=== PATIENT | male | born 1980 | race Caucasian/White ===

== ENCOUNTER 2017-01-24 19:58 | Inpatient (IN) | payer SELFPAY ==
[~2017-01-24] VITALS: Ht 177.8 cm; Wt 77.1 kg
--- NOTE | 2017-01-24 20:20 | NUR ---
to bed 2 ambulatory c/o possible allergic reaction after eating a snicker bar. pt aaox4 no acute distress noted, resp even and unlabored. no hives noted. pt also report of n/v. pending er md babb.
[2017-01-24] MEDS ORDERED: IV NS 0.9% 500 ML BAG IV ONE (20:30)
[2017-01-24] MEDS ORDERED: diphenhydrAMINE HCL 50 MG/ML VIAL IV ONE (20:30)
[2017-01-24] MEDS ORDERED: KETOROLAC TROMETHAMINE INJ 30 MG/ML VIAL IV ONE (20:30)
[2017-01-24] MEDS ORDERED: IV NS 0.9% 1,000 ML BAG IV ONE (20:30)
[2017-01-24] MEDS ORDERED: METOCLOPRAMIDE HCL 10 MG/2 ML VIAL IV ONE (20:30)
[2017-01-24] MEDS ORDERED: diphenhydrAMINE HCL 50 MG/ML VIAL ONE (20:41)
[2017-01-24] MEDS ORDERED: METOCLOPRAMIDE HCL 10 MG/2 ML VIAL ONE (20:41)
[2017-01-24] MEDS ORDERED: KETOROLAC TROMETHAMINE INJ 30 MG/ML VIAL ONE (20:41)
[2017-01-24 20:43] LABS: BASOPHILS % (AUTO) 0.1 % (0.0-2.0); EOSINOPHILS % (AUTO) 0.1 % (0.0-6.0); HEMATOCRIT 34 % (39-51); HEMOGLOBIN 11.5 g/dL (13.5-17.5); LYMPHOCYTES # (AUTO) 0.6 /CMM (0.8-4.8); LYMPHOCYTES % (AUTO) 20.7 % (20.0-44.0); MEAN CORPUSCULAR HEMOGLOBIN 28 PG (26.0-33.0); MEAN CORPUSCULAR HGB CONC 34 g/dl (31.0-36.0); MEAN CORPUSCULAR VOLUME 84 fL (80-96); MONOCYTES # (AUTO) 0.1 /CMM (0.1-1.30); MONOCYTES % (AUTO) 1.7 % (2.0-12.0); NEUTROPHILS # (AUTO) 2.4 /CMM (1.8-8.9); NEUTROPHILS % (AUTO) 77.4 % (43.0-81.0); PLATELET COUNT (AUTO) 514 /CMM (150-450); RDW COEFFICIENT OF VARIATION 14.7 (11.5-15.0); RED BLOOD CELL COUNT(AUTO) 4.09 MIL/uL (4.5-6.0); WHITE BLOOD COUNT (AUTO) 3.1 K/uL (4.3-11.0)
[2017-01-24 20:52] LABS: CREATININE 1.1 mg/dL (0.6-1.3); POTASSIUM 3.7 mmol/L (3.5-5.1)
[2017-01-24] MEDS ORDERED: MORPHINE SULFATE INJ 4 MG/ML DISP.SYRIN ONE (21:47)
[2017-01-24] MEDS ORDERED: MORPHINE SULFATE INJ 2 MG/ML DISP.SYRIN ONE (21:47)
[2017-01-24] MEDS ORDERED: MORPHINE SULFATE INJ 2 MG/ML DISP.SYRIN IV ONE (22:00)
--- NOTE | 2017-01-24 22:14 | NUR ---
er spoke to jayy gasca regarding pt admission.
--- NOTE | 2017-01-24 22:17 | NUR ---
report called to m/s jose gamez.
[2017-01-24 23:00] VITALS: BP 113/63
--- NOTE | 2017-01-24 23:00 | NUR ---
MS [facility] [employer] OUTREACH WORKER NOTES RECEIVED FROM ER THIS 36 Y.O. MALE PER EDILMA,ALERT,ORIENTED X4.WITH CHIEF COMPLAINTS OF NAUSEA /VOMITING,ALLERGIC REACTION TO PEANUTS FEW HOURS TEAM MEMBER.PER PATIENT HE JUST CAME BACK FROM [place] AND HE WAS HOSPITALIZED THERE FOR VIRAL MENINGITIS.PLACE ON ISOLATION PRECAUTION FOR SAFETY.SALINE LOCK RIGHT AC INTACT AND PATENT.NOTED MULTIPLE FLAT BROWN SCARS ON HIS BACK.WITH KNOWN ALLERGY TO PEANUTS AND REGLAN.CALL LIGHT IN REACH,NEEDS ANTICIPATED.
[2017-01-24] MEDS ORDERED: IV NS 0.9% 1,000 ML IV PRN (23:46)
[2017-01-25] VITALS: BP 113/63
[2017-01-25] MEDS ORDERED: ACETAMINOPHEN 325 MG TABLET PO PRN
[2017-01-25] MEDS ORDERED: MAGNESIUM HYDROXIDE 30 ML UDC PO PRN
[2017-01-25] MEDS ORDERED: MAG HYDROX/AL HYDROX/SIMETH 30 ML UDC PO PRN
[2017-01-25] MEDS ORDERED: diphenhydrAMINE HCL 25 MG CAPSULE PO PRN
[2017-01-25] MEDS ORDERED: DEXAMETHASONE SOD PHOSPHATE 10 MG/ML VIAL IV SCH
[2017-01-25] MEDS ORDERED: Z GUARD REMEDY 2 OZ OINT TP PRN
[2017-01-25] MEDS ORDERED: HYDROCODONE/APAP 5/325MG 1 EACH TABLET PO PRN
[2017-01-25] MEDS ORDERED: ONDANSETRON HCL/PF 4 MG/2 ML VIAL IVP PRN
[2017-01-25] MEDS ORDERED: ACYCLOVIR IV 1 GM/20 ML VIAL IV ONE (00:30)
[2017-01-25] MEDS ORDERED: DEXAMETHASONE SOD PHOSPHATE 10 MG/ML VIAL ONE (00:32)
[2017-01-25] MEDS ORDERED: MORPHINE SULFATE INJ 2 MG/ML DISP.SYRIN ONE ×2 (00:33→05:58)
--- NOTE | 2017-01-25 00:38 | NUR ---
MS RN NOTES PAIN MANAGEMENT C/O PAIN VIA NECK AREA,MEDICATED WITH MORPHINE 2MG IVP ORDERED.
[2017-01-25] MEDS ORDERED: diphenhydrAMINE HCL 50 MG/ML VIAL ONE ×2 (00:46→06:43)
[2017-01-25] MEDS: diphenhydrAMINE HCL 50 MG/ML VIAL IV PRN ×2 (00:53→06:46)
--- NOTE | 2017-01-25 00:53 | NUR ---
MS RN NOTES C/O OF ITCHINESS VIA THROAT AREA,BENADRYL 25MG IV ADMINISTERED.PATIENT CLAIMED HE DIDNT FEEL IT.HE CALL HIS MOM AND HE PREFERS TO GO HOME.REFUSED IV FLUIDS THIS TIME.WAS ADVISED THAT IF HE WANTS TO GO HOME THEN HE NEEDS TO SIGN AGAINST MEDICAL ADVICE FORM,AND HE SAID 'NO IM NOT GONNA SIGN ANYTHING'
[2017-01-25] MEDS: MORPHINE SULFATE INJ 2 MG/ML DISP.SYRIN IV PRN ×2 (00:54→06:06)
--- NOTE | 2017-01-25 01:10 | NUR ---
MS RN NOTES CHARGE NURSE ZEENAT MADE AWARE OF PATIENT CONCERN,AMAIRANI PASTOR ACNP MADE AWARE ALSO OF PATIENT CONCERN AND HE SAID 'I CANT DO ANYTHING IF HE WANTS TO GO HOME,I CANT KEEP HIM,HE'S NOT A HOLD.
--- NOTE | 2017-01-25 04:00 | NUR ---
MS RN NOTES RN LEONARDO WENT TO CHECK PATIENT.OFFERED TO TAKE OUT SALINE LOCK BUT REFUSED.
[2017-01-25] MEDS: ACYCLOVIR IV 500 MG in IV D5W 100 ML IV SCH ×3 (05:00)
[2017-01-25] MEDS ORDERED: ONDANSETRON HCL/PF 4 MG/2 ML VIAL ONE (05:57)
--- NOTE | 2017-01-25 06:00 | NUR ---
MS RN NOTES PATIENT WAS ASK IF HE WANTS HIS IV FLUIDS NOW AND THE ACYLOVIR DOSE AND SAID YES.IV FLUID WAS PREPARED AND THE ACYCLOVIR DOSE,BUT APPARENTLY,HE REFUSED AGAIN THE DOSE AND THE IV FLUIDS,CHARGE MADE AWARE,WENT TO THE ROOM AND SPOKE TO THE PATIENT.
--- NOTE | 2017-01-25 06:01 | NUR ---
MS RN NOTES C/O NAUSEA/VOMITING,ZOFRAN 4MG IV ADMINISTERED ORDERED
--- NOTE | 2017-01-25 06:06 | NUR ---
MS RN NOTES C/O PAIN 9/10 ON PAIN SCALE,MORPHINE 2MG IVP GIVEN
--- NOTE | 2017-01-25 06:46 | NUR ---
MS RN NOTES C/O ITCHINESS ON THROAT AREA,BENADRYL 25MG IV GIVEN BY CHARGE NURSE ZEENAT.
[2017-01-25] MEDS ORDERED: PANTOPRAZOLE 40 MG TABLET.DR PO SCH (07:30)
--- NOTE | 2017-01-25 07:30 | NUR ---
RN OPENING NOTES RECEIVED PATIENT IN BED ASLEEP, AROUSES EASILY. NO ACUTE DISTRESS, NO SOB NOTED. COMPLAINING OF NECK PAIN /, NIGHT RN JUST GAVE HIM PAIN MEDS, PATIENT STATED ITS NOT WORKING, WILL NOTIFY MD. IV SITE INTACT AND PATENT. BED LOCKED, LOW POSITION, SIDERAILS UP X2. CALL LIGHT IN REACH. WILL CONTINUE TO MONITOR ACCORDINGLY.
--- NOTE | 2017-01-25 07:37 | NUR ---
MS RN NOTES VERBALIZED CONCERN TO CHARGE NURSE.ABLE TO CALM DOWN,IVF FLUIDS STARTED,ACYCLOVIR DOSE HUNG IVPB BY CHARGE NURSE.WILL MONITOR BEHAVIOR.ENDORSED TO JESSY MARINO FOR CATY
[2017-01-25 07:57] LABS: BASOPHILS % (AUTO) 0.1 % (0.0-2.0); HEMATOCRIT 35 % (39-51); HEMOGLOBIN 11.8 g/dL (13.5-17.5); LYMPHOCYTES # (AUTO) 0.7 /CMM (0.8-4.8); LYMPHOCYTES % (AUTO) 17.7 % (20.0-44.0); MEAN CORPUSCULAR HEMOGLOBIN 28 PG (26.0-33.0); MEAN CORPUSCULAR HGB CONC 33 g/dl (31.0-36.0); MEAN CORPUSCULAR VOLUME 85 fL (80-96); MONOCYTES # (AUTO) 0.1 /CMM (0.1-1.30); MONOCYTES % (AUTO) 2.8 % (2.0-12.0); NEUTROPHILS # (AUTO) 3.3 /CMM (1.8-8.9); NEUTROPHILS % (AUTO) 79.4 % (43.0-81.0); PLATELET COUNT (AUTO) 455 /CMM (150-450); RDW COEFFICIENT OF VARIATION 16.2 (11.5-15.0); RED BLOOD CELL COUNT(AUTO) 4.17 MIL/uL (4.5-6.0); WHITE BLOOD COUNT (AUTO) 4.2 K/uL (4.3-11.0)
[2017-01-25 08:00] VITALS: BP 126/74
[2017-01-25 08:29] LABS: CALCIUM, SERUM 8.9 mg/dL (8.5-10.1); CREATININE 0.9 mg/dL (0.6-1.3); MAGNESIUM 2.2 mg/dL (1.8-2.4); PHOSPHORUS 3.6 mg/dL (2.5-4.9); POTASSIUM 3.9 mmol/L (3.5-5.1); THYROID STIMULATING HORMONE 0.315 uIU/mL (0.358-3.74)
--- NOTE | 2017-01-25 09:00 | NUR ---
RN NOTES PATIENT REFUSED CT SCAN. EXPLAINED/EDUCATED PATIENT ABOUT THE IMPORTANCE OF CT SCAN BUT PATIENT INSISTED AND STILL REFUSED. STEM ASSEMBLER, AND MD NOTIFIED.
--- NOTE | 2017-01-25 09:20 | NUR ---
pt refusing, wants to speak with md first AMRINO aware
--- NOTE | 2017-01-25 09:30 | NUR ---
RN NOTES PATIENT LEFT AGAINST MEDICAL ADVICE. RISK OF LEAVING EXPLAINED TO PATIENT BUT PATIENT STILL INSISTED ON LEAVING SAYING "IM LEAVING!". PATIENT ADVISED TO F/U WITH PHYSICIAN. PATIENT TOOK OFF PERIPHERAL IV AND ARMBAND.
--- NOTE | 2017-01-25 09:31 | NUR ---
RN NOTES PATIENT REFUSED TO SIGN AMA FORM.
--- NOTE | 2017-01-25 09:31 | NUR ---
RN NOTES STEEL HANDLER, DIRECTOR, AND MD WAS NOTIFIED OF PATIENT LEAVING AMA.
== END 2017-01-25 09:30 | disposition left against medical advice (07) | DRG 641 ==
LOC: ER 20:02 → MED 23:31
PROVIDERS: ADMIT Nurse Practitioner Acute Care; ATTEND Nurse Practitioner Acute Care
DX: E86.0 Dehydration (principal); D63.8 Anemia in other chronic diseases classified elsewhere; R11.2 Nausea with vomiting, unspecified; D72.819 Decreased white blood cell count, unspecified; F41.9 Anxiety disorder, unspecified; R73.9 Hyperglycemia, unspecified; Z76.5 Malingerer [conscious simulation]; Z91.010 Allergy to peanuts
CPT/HCPCS: 36415; 80048-TC; 80061-TC; 83735-TC; 84100-TC; 84443-TC; 85025-TC; 87081-TC; J0133; J1100; J1200; J1885; J2270; J2405; J2765; J7030; J7060; Z7610